=== PATIENT | female | born 1985 | race Caucasian/White ===

== ENCOUNTER 2016-04-17 13:20 | Emergency (ER) | payer MEDICAID ==
[~2016-04-17] VITALS: Wt 85.0 kg
--- NOTE | 2016-04-17 14:07 | RADRPT ---
PROCEDURE: OBSTETRICAL ULTRASOUND WITH ENDOVAGINAL IMAGES CLINICAL INDICATION: PAIN TECHNIQUE: Multiple sonographic images of the pelvis were obtained utilizing a transabdominal and endovaginal technique. The images were reviewed on a PACS workstation. COMPARISON: None. LMP: 08/21/2015 FINDINGS: There is a single live intrauterine with heart rate of 146 beats per minute, mean sa c diameter of 6.24 cm, and crown-rump length of 6.61 cm which is consistent with a gestational age o f 12 weeks, 6 days . The estimated date of delivery by ultrasound is 10/24/2016 . The estimated gestational age by LMP is 16 weeks, 5 days . The estimated date of delivery by LMP is 09/27/2016 . Bilateral ovaries are not visualized. There are no abnormal adnexal masses. No significant pelvic free fluid is identified. IMPRESSION: Single live intrauterine consistent with a gestational age of 12 weeks, 6 days . The estimated date of delivery is 10/24/2016 . Dating by ultrasound is not consistent with dating by LMP, as above. RPTAT: EE Physician Gwen Date Time Electronically viewed and signed by Physician Gwen on 04/17/2016 14:07 /
[2016-04-17 14:24] LABS: URINE BLOOD (Dip) POC Trace-lysed (NEGATIVE)
[2016-04-17] MEDS ORDERED: ACET500C5 PO (14:32)
--- NOTE | 2016-04-17 14:34 | ERD ---
ER Documentation Chief Complaint Date/Time DATE: 04/17/16 TIME: 14:33 Chief Complaint PELVIC PAIN X 3 DAYS DENIES VAG BLEED 12 WEEKS PREG HPI This 30-year-old female complains of periumbilical pain intermittently for last 3 days. She is approximately 12 weeks by dates. She denies any dysuria, vaginal bleeding, fevers. She has had some intermittent vomiting since early which is nonbilious nonbloody. She does have OB follow- up she is a G3 para 2. ROS All systems reviewed and are negative except as per history of present illness. Medications Home Meds Active Scripts Acetaminophen* (Tylophen*) 500 Mg Capsule, 1 CAP PO Q6H Y for PAIN AND OR ELEVATED TEMP, #15 CAP Prov:PILAR BARNARD MD 04/17/16 Allergies Allergies: Coded Allergies: No Known Drug Allergy (Verified Allergy, Unknown, 11/22/12) PMhx/Soc History of Surgery: No Anesthesia Reaction: No Hx Neurological Disorder: No Hx Respiratory Disorders: No Hx Cardiac Disorders: No Hx Psychiatric Problems: No Hx Miscellaneous Medical Probl: No Hx Alcohol Use: No Hx Substance Use: No Hx Tobacco Use: No Physical Exam Vitals Vital Signs Date Time Temp Pulse Resp B/P Pulse Ox O2 Delivery O2 Flow Rate FiO2 04/17/16 13:23 98.0 88 18 113/57 99 Physical Exam Const: [] Alert, [id number] per Head: Atraumatic Eyes: Normal Conjunctiva ENT: Normal External Ears, Nose and Mouth. Neck: Full range of motion..~ No meningismus. Resp: Clear to auscultation bilaterally Cardio: Regular rate and rhythm, no murmurs Abd: Soft, minimal tenderness in the periumbilical area without rebound. There is no tenderness at McBurney's point no Jimenez sign. R, non distended. Normal bowel sounds Skin: No petechiae or rashes Back: No midline or flank tenderness Ext: No cyanosis, or edema Neur: Awake and alert Psych: Normal Mood and Affect Results 24 hrs Laboratory Tests Test 04/17/16 14:27 Bedside Urine Blood Trace-lysed Bedside Urine Glucose (UA) Negative Bedside Urine Ketones (LAB) Negative Bedside Urine Leukocyte Esterase (L Negative Bedside Urine Nitrite (LAB) Negative Bedside Urine Protein (LAB) Negative Bedside Urine pH (LAB) 5.5 Procedures/MDM Urine is negative for glucose and signs of infection. There is trace hemoglobin. Pelvic ultrasound shows a normal-appearing 12 week intrauterine without evidence of masses or adnexal . Patient has mid abdominal pain of uncertain etiology of early . She will be treated with Tylenol and further observation at home. The patient was stable with no new complaints during the ER course. Clinically, there is no current evidence to suggest meningitis, sepsis, acute abdomen, pneumonia, acute coronary syndrome , pulmonary embolism, or any other emergent condition appearing to require further evaluation or hospitalization. The patient should certainly return for any new or worsening symptoms per the aftercare instructions. They should otherwise follow-up with her primary care doctor for reevaluation this week. Departure Diagnosis: Primary Impression: Abdominal pain Abdominal location: epigastric Qualified Code: R10.13 - Epigastric pain Condition: Stable Patient Instructions: Abdominal Pain, Early Additional Instructions: Examines normal hoy. Cheque otro vez con lino doctor primario en el proximo webster or regresa para mas o nueva simptomas. PILAR BARNARD MD Apr 17, 2016 14:34
[2016-04-17 14:51] VITALS: BP 118/68; PULSE 72; RESP 18
== END 2016-04-17 14:54 | disposition home or self-care (01) ==
LOC: FTE 13:20
DX: O26.891 Other specified pregnancy related conditions, first trimester (principal); R10.13 Epigastric pain; Z3A.12 12 weeks gestation of pregnancy
CPT/HCPCS: 76801; 81003; Z7502

== ENCOUNTER 2016-10-25 10:02 | Inpatient (IN) | payer MEDICAID ==
[~2016-10-25] VITALS: Ht 170.2 cm; Wt 85.9 kg
[~2016-10-25 10:02] MED LIST: ACET500C5 PO
[2016-10-25 10:40] VITALS: Ht 170.2 cm; Wt 85.9 kg
[2016-10-25 10:42] VITALS: BP 124/76; PULSE 84; RESP 20
[2016-10-25] MEDS ORDERED: CARBOPROST 250 MCG INJ IM PRN ×2 (11:00→18:00)
[2016-10-25] MEDS ORDERED: OXYTOCIN 30 UNITS/LR 500 ML IV SCH ×2 (11:00)
[2016-10-25] MEDS ORDERED: METHYLERGONOVINE 0.2 MG INJ IM PRN ×2 (11:00→18:00)
[2016-10-25] MEDS ORDERED: HYDROCODONE/APAP (5/325) TAB PO PRN ×2 (11:00→18:00)
[2016-10-25] MEDS ORDERED: OXYTOCIN 30 UNITS/LR 500 ML IV PRN ×2 (11:00→18:00)
[2016-10-25] MEDS ORDERED: MISOPROSTOL 200 MCG TAB PR PRN ×2 (11:00→18:00)
[2016-10-25] MEDS ORDERED: BUTORPHANOL 2 MG INJ IV PRN (11:00)
[2016-10-25] MEDS ORDERED: AMPICILLIN 2 GM/NS (PMX) 100 ML IV ONE (11:00)
[2016-10-25] MEDS ORDERED: LIDOCAINE 1% (MPF) 30 ML INJ INJ PRN (11:00)
[2016-10-25] MEDS ORDERED: IBUPROFEN 600 MG TAB PO PRN (11:00)
[2016-10-25] MEDS: LACTATED RINGER'S 1,000 ML IV SCH ×2 (11:03→12:40)
[2016-10-25] MEDS: MISOPROSTOL 25 MCG CAPSULE PO SCH ×2 (11:27→15:29)
[2016-10-25 11:57] LABS: BASOPHILS % 0.2 % (0.0-2.0); EOSINOPHILS % 0.5 % (0.0-7.0); HEMATOCRIT 35.6 % (37.0-47.0); HEMOGLOBIN 11.5 g/dl (12.0-16.0); LYMPHOCYTES # 2.3 10^3/ul (0.8-2.9); LYMPHOCYTES % 28.4 % (15.0-51.0); MEAN CORPUSCULAR HEMOGLOBIN 25.7 pg (29.0-33.0); MEAN CORPUSCULAR HGB CONC 32.3 g/dl (32.0-37.0); MEAN CORPUSCULAR VOLUME 79.5 fl (82.0-101.0); MEAN PLATELET VOLUME 11.6 fl (7.4-10.4); MONOCYTE # 0.9 10^3/ul (0.3-0.9); MONOCYTES % 10.4 % (0.0-11.0); PLATELET COUNT 260 10^3/UL (140-415); RED BLOOD COUNT 4.48 10^6/ul (4.20-5.40); RED CELL DISTRIBUTION WIDTH 14.3 % (11.5-14.5); WHITE BLOOD COUNT 8.3 10^3/ul (4.8-10.8)
[2016-10-25] MEDS ORDERED: LACTATED RINGER'S 1,000 ML IV PRN (12:00)
[2016-10-25 12:22] LABS: INR 0.91; PROTIME 12.2 Sec (12.2-14.2)
[2016-10-25] MEDS ORDERED: AMPICILLIN 1 GM/NS (PMX) 50 ML IV SCH (15:00)
[2016-10-25 17:35] VITALS: BP 125/63; PULSE 68; RESP 16
[2016-10-25] MEDS: LACTATED RINGER'S 1,000 ML IV* SCH (17:41)
[2016-10-25] MEDS ORDERED: WITCH HAZEL/GLYCERIN PAD PR PRN (18:00)
[2016-10-25] MEDS ORDERED: BENZOCAINE 20% 56 ML SPRAY TOP PRN (18:00)
[2016-10-25] MEDS ORDERED: DIBUCAINE 1% 30 GM OINT PR PRN (18:00)
[2016-10-25] MEDS ORDERED: SENNA/DOCUSATE NA (8.6MG/50MG) TAB PO PRN (18:00)
[2016-10-25] MEDS: IBUPROFEN 600 MG TAB PO SCH ×2 (18:09→23:42)
[2016-10-25] MEDS: OXYTOCIN 30 UNITS/LR 500 ML IV SCH ×2 (18:12→22:15)
[2016-10-25 20:05] VITALS: BP 121/61; PULSE 74; RESP 18
--- NOTE | 2016-10-25 20:10 | LDN ---
Date/Time of Note Date/Time of Note DATE: 10/25/16 TIME: 20:06 Delivery Summary Nurse assisted delivery/precipitous delivery Admitted for induction secondary to low VINAYAK oligohydramnios Weeks of Gestation 40 Placenta Delivered: Spontaneously Meconium: none Anesthesia type: None Estimated blood loss: 300 Sponge & Needle done & correct: Yes All needle counts correct: Yes Any foreign bodies felt in the: No Problems: Delivery Information Sex Infant Sex: female Apgars 1 Minute: 9 5 Minute: 9 Suctioning Nose & mouth suctioned at gabrielle: No Umbilical Cord Umbilical cord with: 3 Vessels Cord presentations: no nuchal cord Cord Blood was obtained: Yes NOREEN CARLOS MD Oct 25, 2016 20:10
--- NOTE | 2016-10-25 20:25 | PREOPHP ---
DATE OF ADMISSION: 10/25/2016 HISTORY OF PRESENT ILLNESS: Ms. Ciro Khalil is a 30-year-old, 3, para 2, EDC 10/25/2016 intrauterine at 40 weeks' gestational age. Was sent from the clinic today for induction secondary to low VINAYAK diagnosed by Dr. Parsons/perinatologist. She denies any contractions, vaginal bleeding or discharge. [facility] care [facility] at [facility]. PAST MEDICAL HISTORY: None. MEDICATIONS: vitamins. PAST SURGICAL HISTORY: None. OBSTETRICAL HISTORY: Times 2 vaginal deliveries. GYNECOLOGICAL HISTORY: Twelve, regular, 34 days. Denies any sexually transmitted disease. Sexually active with 1 partner. SOCIAL HISTORY: Denies any smoking, drugs, or alcohol. FAMILY HISTORY: None. REVIEW OF SYSTEMS: All within normal, except History of Present Illness. PHYSICAL EXAMINATION: HEENT: Within normal limits. LUNGS: CTA. CARDIOVASCULAR: S1, S2. Regular rate and rhythm. ABDOMEN: Gravid, nontender. Negative CVA bilaterally. EXTREMITIES: Negative edema. No calf tenderness. VAGINAL: Exam deferred. ASSESSMENT: 1. Intrauterine at 40 weeks' gestational age. 2. Low VINAYAK. PLAN: Admit patient for delivery. Consider Cytotec after vaginal exam. Dictated By: Ovidio Thrasher MD /saray/santosh /Document#: [id number]
[2016-10-25] MEDS: SENNA/DOCUSATE NA (8.6MG/50MG) TAB PO SCH ×2 (21:53→21:57)
[2016-10-26 00:20] VITALS: BP 118/66; PULSE 72; RESP 18
[2016-10-26] MEDS: LACTATED RINGER'S 1,000 ML IV* SCH (01:41)
[2016-10-26 04:20] VITALS: BP 114/54; PULSE 68; RESP 17
[2016-10-26] MEDS: IBUPROFEN 600 MG TAB PO SCH ×4 (05:42→17:43)
[2016-10-26 08:00] VITALS: BP 109/58; PULSE 75; RESP 18
[2016-10-26 10:17] LABS: BASOPHILS % 0.3 % (0.0-2.0); EOSINOPHILS # 0.1 10^3/ul (0.0-0.5); EOSINOPHILS % 0.7 % (0.0-7.0); HEMATOCRIT 31.8 % (37.0-47.0); HEMOGLOBIN 9.9 g/dl (12.0-16.0); LYMPHOCYTES # 2.5 10^3/ul (0.8-2.9); LYMPHOCYTES % 24.7 % (15.0-51.0); MEAN CORPUSCULAR HEMOGLOBIN 25.1 pg (29.0-33.0); MEAN CORPUSCULAR HGB CONC 31.1 g/dl (32.0-37.0); MEAN CORPUSCULAR VOLUME 80.5 fl (82.0-101.0); MONOCYTE # 0.7 10^3/ul (0.3-0.9); MONOCYTES % 6.6 % (0.0-11.0); NEUTROPHIL # 6.8 10^3/ul (1.6-7.5); NEUTROPHILS % 67.2 % (39.0-77.0); PLATELET COUNT 221 10^3/UL (140-415); RED BLOOD COUNT 3.95 10^6/ul (4.20-5.40); RED CELL DISTRIBUTION WIDTH 14.5 % (11.5-14.5); WHITE BLOOD COUNT 10.1 10^3/ul (4.8-10.8)
[2016-10-26 12:00] VITALS: BP 111/78; PULSE 71; RESP 18
[2016-10-26 16:00] VITALS: BP 107/62; PULSE 74; RESP 18
--- NOTE | 2016-10-26 17:53 | PD.PPDC ---
[employer] Discharge Instruction Condition Patient Condition: Good Diet Diet: Resume Regular Diet Follow-up Follow-up with Physician: 3, Week/Weeks Return to clinic for LAYER OUT PLATE GLASS Instructions: Fever greater than 101 Chills Worsening abdominal pain Excessive Vaginal Bleeding More than 2 pads per hour Unable to tolerate diet OB Instructions: Breast Tenderness Depression Blurried Vision Headache Surgical Instructions: Incisional Drainage Incisional Redness NOREEN CARLOS MD Oct 26, 2016 17:53
--- NOTE | 2016-10-26 17:55 | DS ---
Date/Time of Note Date/Time of Note DATE: 10/26/16 TIME: 17:54 Obstetrical Discharge Record Final Diagnosis Final Diagnosis: Term delivered Vaginal Delivery Obstetrical Delivery: Spontaneous Complications Other (Low VINAYAK) Augmentation: No Induction: Yes Condition on Discharge Physical Assessment Voiding: Yes Bowel Movement: Yes Breast: Soft, non-tender, Filling Fundus: Firm Calf Tenderness: No Patient Condition: Fair NOREEN CARLOS MD Oct 26, 2016 17:55
[2016-10-26 19:40] VITALS: BP 112/65; PULSE 70; RESP 18
[2016-10-26] MEDS: SENNA/DOCUSATE NA (8.6MG/50MG) TAB PO SCH (22:04)
[2016-10-27] MEDS: IBUPROFEN 600 MG TAB PO SCH ×3 (00:01→12:31)
[2016-10-27 04:00] VITALS: BP 124/82; PULSE 72; RESP 17
[2016-10-27 08:00] VITALS: BP 109/70; PULSE 77; RESP 18
[2016-10-27] MEDS: SENNA/DOCUSATE NA (8.6MG/50MG) TAB PO SCH (10:25)
== END 2016-10-27 14:00 | disposition home or self-care (01) | DRG 775 ==
LOC: L-D 10:02 → PP1 18:04
PROVIDERS: ADMIT Obstetrics & Gynecology; ATTEND Obstetrics & Gynecology
PROC: 10E0XZZ Delivery of Products of Conception, External Approach (ICD-10-PCS; principal; 2016-10-25)
PROC: 3E033VJ Introduction of Other Hormone into Peripheral Vein, Percutaneous Approach (ICD-10-PCS; 2016-10-25)
DX: O48.0 Post-term pregnancy (principal); O41.03X0 Oligohydramnios, third trimester, not applicable or unspecified; Z3A.40 40 weeks gestation of pregnancy; Z37.0 Single live birth
CPT/HCPCS: 85025; 85610; 85730; 86592; 86850; 86900; 86901; 87340; J0290; J2590; J7120

== ENCOUNTER 2016-12-29 06:47 | Emergency (ER) | payer MEDICAID ==
[~2016-12-29] VITALS: Wt 85.6 kg
--- NOTE | 2016-12-29 06:59 | ERD ---
ER Documentation Chief Complaint Chief Complaint dysuria x week HPI Patient is a 31-year-old female presents ED for concerns of dysuria 1 week. Patient reports burning pain with urination. Patient also reports frequency and urgency. Patient states she is currently ending her menstrual period. Patient denies any fevers, chills, nausea, vomiting, upper abdominal pain, flank pain, chest pain, shortness of breath, or loss of consciousness. ROS All systems reviewed and are negative except as per history of present illness. Medications Home Meds Active Scripts Phenazopyridine Hcl* (Pyridium*) 100 Mg Tab, 100 MG PO TID Y for URINARY PAIN, # 10 TAB Prov:NONI SIMPSON PA-C 12/29/16 Allergies Allergies: Coded Allergies: No Known Drug Allergy (Verified Allergy, Unknown, 12/29/16) PMhx/Soc History of Surgery: No Anesthesia Reaction: No Hx Neurological Disorder: No Hx Respiratory Disorders: No Hx Cardiac Disorders: No Hx Psychiatric Problems: No Hx Miscellaneous Medical Probl: No Hx Alcohol Use: No Hx Substance Use: No Hx Tobacco Use: No Physical Exam Vitals Vital Signs Date Time Temp Pulse Resp B/P Pulse Ox O2 Delivery O2 Flow Rate FiO2 12/29/16 06:48 97.7 71 18 127/81 99 Physical Exam GENERAL: Well-developed, well-nourished female. Appears in no acute distress. HEAD: Normocephalic, atraumatic. EYES: Pupils are equally reactive bilaterally. EOMs grossly intact. No conjunctival erythema. LUNG: Clear to auscultation bilaterally. No rhonchi, wheezing, rales or coarse breath sounds. HEART: Regular rate and rhythm. No murmurs, rubs or gallops. ABDOMEN:Soft and nondistended. Tender to palpation in the suprapubic region. Positive bowel sounds in all four quadrants. No rebound tenderness, no guarding. (-) McBurney's point tenderness. No CVA tenderness. EXTREMITIES: Equal pulses bilaterally. No peripheral clubbing, cyanosis or edema. No unilateral leg swelling. NEUROLOGIC: Alert and oriented. Moving all four extremities without any difficulty. Normal speech. Steady gait. SKIN: Normal color. Warm and dry. No rashes or lesions. Results 24 hrs Laboratory Tests Test 12/29/16 07:10 Bedside Urine pH (LAB) 6.0 Bedside Urine Protein (LAB) Trace Bedside Urine Glucose (UA) Negative Bedside Urine Ketones (LAB) Negative Bedside Urine Blood 3+ Bedside Urine Nitrite (LAB) Negative Bedside Urine Leukocyte Esterase (L Negative Procedures/MDM MEDICAL DECISION MAKING: This is a 31-year-old female presents with dysuria, frequency and urgency 1 week. Vital signs were reviewed. Patient was afebrile. Urine showed 3+ blood, however no nitrites or leukocytes. Patient is currently ending her menstrual period which may explain presence of blood in urine. Urine was negative. I explained to the patient will send her urine for culture. If positive, patient will be contacted and given a prescription for antibiotics. Given these findings, the patients presentation is most consistent with dysuria. I have a much lower clinical concern for pyelonephritis, nephrolithiasis, appendicitis, diverticulitis, constipation, ectopic , PID, ovarian torsion, or tubo-ovarian abscess. PRESCRIPTIONS: Pyridium DISCHARGE: At this time, patient is stable for discharge and outpatient management. I have instructed the patient to follow-up with his/her primary care physician in 1-2 days. Patient should repeat UA in 2 weeks to check for resolution of urinary tract infection. If symptoms persist, patient may need to see a specialist for further examinations and testing. I have instructed the patient to promptly return to the ER at any time for any new or worsening symptoms including increased pain, fever, nausea, vomiting, urinary changes or weakness. The patient and/or family expressed understanding of and agreement with this plan. All questions were answered. Home care instructions were provided. Disclaimer: Inadvertent spelling and grammatical errors are likely due to EHR/ dictation software use and do not reflect on the overall quality of patient care. Also, please note that the electronic time recorded on this note does not necessarily reflect the actual time of the patient encounter. Departure Diagnosis: Primary Impression: Dysuria Condition: Stable Patient Instructions: Understanding Urinary Tract Infections (UTIs) Referrals: COMMUNITY CLINICS YOU HAVE RECEIVED A MEDICAL SCREENING EXAM AND THE RESULTS INDICATE THAT YOU DO NOT HAVE A CONDITION THAT REQUIRES URGENT TREATMENT IN THE EMERGENCY DEPARTMENT. FURTHER EVALUATION AND TREATMENT OF YOUR CONDITION CAN WAIT UNTIL YOU ARE SEEN IN YOUR DOCTORS OFFICE WITHIN THE NEXT 1-2 DAYS. IT IS YOUR RESPONSIBILITY TO MAKE AN APPOINTMENT FOR FOLOW-UP CARE. IF YOU HAVE A PRIMARY DOCTOR --you should call your primary doctor and schedule an appointment IF YOU DO NOT HAVE A PRIMARY DOCTOR YOU CAN CALL OUR PHYSICIAN REFERRAL HOTLINE AT IF YOU CAN NOT AFFORD TO SEE A PHYSICIAN YOU CAN CHOSE FROM THE FOLLOWING [facility] [address] [facility] [address] [facility] [address] [facility] [address] [facility] [address]. [facility] [address] [facility]. [facility] YOU HAVE RECEIVED A MEDICAL SCREENING EXAM AND THE RESULTS INDICATE THAT YOU DO NOT HAVE A CONDITION THAT REQUIRES URGENT TREATMENT IN THE EMERGENCY DEPARTMENT. FURTHER EVALUATION AND TREATMENT OF YOUR CONDITION CAN WAIT UNTIL YOU ARE SEEN IN YOUR DOCTORS OFFICE WITHIN THE NEXT 1-2 DAYS. IT IS YOUR RESPONSIBILITY TO MAKE AN APPOINTMENT FOR FOLOW-UP CARE. IF YOU HAVE A PRIMARY DOCTOR --you should call your primary doctor and schedule and appointment IF YOU DO NOT HAVE A PRIMARY DOCTOR YOU CAN CALL OUR PHYSICIAN REFERRAL HOTLINE AT . IF YOU CAN NOT AFFORD TO SEE A PHYSICIAN YOU CAN CHOSE FROM THE FOLLOWING [facility]: [facility] [address] [place] [address] [facility] [address] [place] [address] [facility] [address] [place] [address] Additional Instructions: Urine will be sent for culture. If positive, he will call for antibiotics. Llame al doctor MAANA y diana brenda KRYSTYNA PARA DENTRO DE 1-2 CHACON.Dgale a la secretaria que nosotros le instruimos hacer esta krystyna.Avise o llame si lino condicin se empeora antes de la krystyna. Regresa aqui si peor o no mejor. ONNI SIMPSON PA-C Dec 29, 2016 06:59
[2016-12-29 07:11] LABS: URINE BLOOD (Dip) POC 3+ (NEGATIVE)
[2016-12-29] MEDS ORDERED: PHEN-537 PO (07:21)
== END 2016-12-29 07:31 | disposition home or self-care (01) ==
LOC: FTE 06:47
DX: R30.0 Dysuria (principal)
CPT/HCPCS: 81003; Z7502; 99283